=== PATIENT | male | born 2000 | race African-American/Black ===

== ENCOUNTER 2025-05-06 20:09 | Emergency (ER) | payer OTHER ==
[~2025-05-06] VITALS: Ht 180.3 cm; Wt 74.8 kg
[~2025-05-06 20:09] MED LIST: DIVA250T PO; ETHO250C6 PO; IBUP-1490 PO; LEVE100023 PO
[2025-05-06] MEDS: IV NS 0.9% 1,000 ML BAG IV ONE (20:39)
[2025-05-06 20:41] VITALS: BP 121/69; TEMP 97.7; O2SAT 99
== END 2025-05-06 20:41 | disposition left against medical advice (07) ==
LOC: ER 20:10
DX: G40.909 Epilepsy, unspecified, not intractable, without status epilepticus (principal); M25.511 Pain in right shoulder; M25.512 Pain in left shoulder; R25.3 Fasciculation; I95.9 Hypotension, unspecified; F17.200 Nicotine dependence, unspecified, uncomplicated; F41.9 Anxiety disorder, unspecified; F32.A Depression, unspecified; Z79.1 Long term (current) use of non-steroidal anti-inflammatories (NSAID); Z60.2 Problems related to living alone